=== PATIENT | female | born 1990 | race Asian ===

== ENCOUNTER 2019-03-24 13:57 | Emergency (ER) | payer SELFPAY ==
[2019-03-24 14:12] VITALS: BP 132/73; PULSE 103; TEMP 98.2; BMI 25.0
== END 2019-03-24 15:04 | disposition left against medical advice (07) ==
LOC: JER 13:57
DX: Z53.21 Procedure and treatment not carried out due to patient leaving prior to being seen by health care provider (principal)
CPT/HCPCS: 99281-25